=== PATIENT | male | born 1945 | race Caucasian/White ===

== ENCOUNTER → 2016-06-07 | Outpatient (REF) | payer OTHER | LOC: M LAB REF 12:11 | PROVIDERS: ATTEND Internal Medicine | DX: M10.9 Gout, unspecified (principal) ==

== ENCOUNTER → 2016-09-02 | Outpatient (CLI) | payer OTHER ==
[~2016-09-02] VITALS: Ht 170.2 cm; Wt 74.8 kg
[~2016-09-02] MED LIST: ASPI1TAB PO; LIPI10TA PO; LOTR10CA2 PO; NS 1,000 ML IV ONE; PROPOFOL 200 MG/20 ML VIAL As Ordered ONE; ZYLO300T4 PO
--- NOTE | 2016-09-02 14:30 | ROOR ---
Patient Name: Jerome Delgado Procedure Date: 09/02/2016 2:04 PM Date of : 1945 Age: 71 Room: [facility] Gender: Male Note Status: Finalized Procedure: Total Colonoscopy + Biopsy Polypectomy Indications: Screening for colorectal malignant neoplasm Providers: Colt Pham MD Referring MD: CHINEDU SANDHU JR, MD Requesting Provider: Medicines: Monitored Anesthesia Care Complications: No immediate complications. Procedure: Pre-Anesthesia Assessment: - The heart rate, respiratory rate, oxygen saturations, blood pressure, adequacy of pulmonary ventilation, and response to care were monitored throughout the procedure. The Colonoscope was introduced through the anus and advanced to the cecum, identified by appendiceal orifice and ileocecal valve. The colonoscopy was performed without difficulty. The patient tolerated the procedure well. The quality of the bowel preparation was excellent. Findings: The perianal and digital rectal examinations were normal. Non-bleeding internal hemorrhoids were found during retroflexion. The hemorrhoids were small and Grade I (internal hemorrhoids that do not prolapse). Multiple small and large-mouthed diverticula were found in the recto-sigmoid colon, sigmoid colon and descending colon. A small polyp was found in the rectum. The polyp was sessile. The polyp was removed with a cold biopsy forceps. Resection and retrieval were complete. The exam was otherwise without abnormality on direct and retroflexion views. Impression: - Non-bleeding internal hemorrhoids. - Diverticulosis in the recto-sigmoid colon, in the sigmoid colon and in the descending colon. - One small polyp in the rectum, removed with a cold biopsy forceps. Resected and retrieved. - The examination was otherwise normal on direct and retroflexion views. - The exam was otherwise normal to the cecum. Recommendation: - Patient has a contact number available for emergencies. The signs and symptoms of potential delayed complications were discussed with the patient. Return to normal activities tomorrow. Written discharge instructions were provided to the patient. - High fiber diet. - Discharge patient to home. - Continue present medications. - Await pathology results. - Telephone GI clinic for pathology results in 1 week. - Check Portal Online for Path Results.([email or web address] - Repeat colonoscopy for surveillance based on pathology results. - The findings and recommendations were discussed with the patient's family. Colt Pham MD Colt Pham MD 09/02/2016 2:30:05 PM This report has been signed electronically. Number of Addenda: 0 Note Initiated On: 09/02/2016 2:04 PM Estimated Blood Loss: Estimated blood loss: none.
[2016-09-02 14:50] VITALS: BP 138/85
== END | disposition home or self-care (01) ==
LOC: M OPP 13:04
PROVIDERS: ATTEND Internal Medicine Gastroenterology
DX: Z12.11 Encounter for screening for malignant neoplasm of colon (principal); K63.5 Polyp of colon; K64.0 First degree hemorrhoids; K57.30 Diverticulosis of large intestine without perforation or abscess without bleeding; I10 Essential (primary) hypertension; E78.5 Hyperlipidemia, unspecified; M10.9 Gout, unspecified; R06.83 Snoring; Z88.0 Allergy status to penicillin; Z79.82 Long term (current) use of aspirin; Z79.899 Other long term (current) drug therapy

== ENCOUNTER → 2016-12-28 | Outpatient (REF) | payer OTHER ==
[~2016-12-28] MED LIST changes: -NS 1,000 ML IV ONE; -PROPOFOL 200 MG/20 ML VIAL As Ordered ONE
== END ==
LOC: M LAB REF 09:04
PROVIDERS: ATTEND Physician Assistant
DX: N39.0 Urinary tract infection, site not specified (principal)

== ENCOUNTER → 2017-09-23 | Outpatient (REF) | payer OTHER ==
[2017-09-23 13:55] LABS: URIC ACID 4.1 MG/DL (3.5-7.2)
== END ==
LOC: M LAB REF 13:28
DX: M10.9 Gout, unspecified (principal)
CPT/HCPCS: 84550

== ENCOUNTER → 2018-07-21 | Outpatient (REF) | payer MEDICARE ==
[~2018-07-21] MED LIST changes: -ASPI1TAB PO; +ASPI81TA26 PO; -ZYLO300T4 PO; +ZYLO300T6 PO
== END ==
LOC: M LAB REF 12:15
PROVIDERS: ATTEND Internal Medicine
DX: E79.0 Hyperuricemia without signs of inflammatory arthritis and tophaceous disease (principal)

== ENCOUNTER → 2018-12-14 | Outpatient (CLI) | payer MEDICARE ==
--- NOTE | 2018-12-14 12:01 | REP ---
Clinical: Cough and shortness of breath. Technique: PA and lateral. Comparison: 01/25/2016. Findings: Mediastinum and cardiac silhouette are within normal limits and stable. Lung swain demonstrate chronic-appearing interstitial changes. No consolidation, effusion, or pneumothorax. Skeletal structures intact. Impression: Chronic-appearing changes. No acute cardiopulmonary process identified. Electronically Signed by Fran Myrick MD 12/14/2018 11:52 A
== END ==
LOC: M ADAMS 11:20
PROVIDERS: ATTEND Physician Assistant
DX: R05 Cough (principal); R06.02 Shortness of breath

== ENCOUNTER → 2019-01-26 | Outpatient (REF) | payer MEDICARE | LOC: M LAB REF 12:47 | PROVIDERS: ATTEND Internal Medicine | DX: E79.0 Hyperuricemia without signs of inflammatory arthritis and tophaceous disease (principal) ==

== ENCOUNTER → 2019-07-14 | Outpatient (CLI) | payer MEDICARE ==
--- NOTE | 2019-07-14 16:20 | REP ---
CT CHEST WITHOUT CONTRAST: CT chest performed without IV contrast. Sagittal and coronal reconstruction images are performed. There are two small calcified granulomas medially in the right upper lobe. No suspicious nodular opacity is seen bilaterally. There is no acute infiltrate. There is minor diffuse interstitial fibrotic scarring. There is no evidence of mediastinal or axillary adenopathy. Thoracic aorta demonstrates mild diffuse atherosclerotic calcification with no aneurysm. The heart is not enlarged. There is no pleural or pericardial effusion. There are degenerative changes of the spine. IMPRESSION: Two small calcified granulomas in the right upper lobe. Scattered interstitial fibrotic scarring bilaterally. No suspicious pulmonary nodule or lymphadenopathy identified. Electronically Signed by Maxime Soriano MD 07/14/2019 05:12 P
== END ==
LOC: M RAD 15:27
PROVIDERS: ATTEND Physician Assistant
DX: R91.8 Other nonspecific abnormal finding of lung field (principal)

== ENCOUNTER → 2019-07-29 | Outpatient (CLI) | payer MEDICARE ==
[~2019-07-29] MED LIST changes: +METHACHOLINE KIT (J7674) INH ONE
--- NOTE | 2019-07-29 13:16 | PFTRPT ---
Visit Date: 07/29/2019 Referring Doctor: KENY Young Marcus, M Height: 67.00 Inches Weight: 160.00 Lbs BSA: 1.84 Diagnosis: R05 Study of excellent technical quality. Under protocol, methacholine was administered. Even after a maximal dose of 25 mg (188.875 CDUs), no provocation dose was ever achieved. IMPRESSION: Negative methacholine challenge study. MTDD
== END ==
LOC: M CARPUL 12:19
PROVIDERS: ATTEND Physician Assistant
DX: R05 Cough (principal)
CPT/HCPCS: 94070; 95070; J7674

== ENCOUNTER → 2019-08-13 | Outpatient (REF) | payer MEDICARE ==
[~2019-08-13] MED LIST changes: -METHACHOLINE KIT (J7674) INH ONE
== END ==
LOC: M LAB REF 16:39
PROVIDERS: ATTEND Internal Medicine
DX: E79.0 Hyperuricemia without signs of inflammatory arthritis and tophaceous disease (principal)

== ENCOUNTER → 2020-07-24 | Outpatient (REF) | payer MEDICARE ==
[2020-07-24 18:34] LABS: FOLATE 15.8 NG/ML
== END ==
LOC: M LAB REF 16:42
PROVIDERS: ATTEND Internal Medicine
DX: R41.3 Other amnesia (principal)

== ENCOUNTER → 2020-08-04 | Outpatient (CLI) | payer MEDICARE ==
--- NOTE | 2020-08-04 13:17 | REPVR ---
PROCEDURE INFORMATION: Exam: MR Head Without and With Contrast Exam date and time: 08/04/2020 12:48 PM Age: 75 years old Clinical indication: Walking, difficulty; Patient HX: Change in gait and personality TECHNIQUE: Imaging protocol: MR of the head without and with intravenous contrast. Contrast material: PROHANCE; Contrast volume: 13 ml; Contrast route: INTRAVENOUS (IV); COMPARISON: No relevant prior studies available. FINDINGS: Brain: There is no acute intracranial hemorrhage, cerebral edema, or midline shift. No restricted diffusion is present to suggest acute infarction. Multiple small foci of increased T2 and FLAIR signal within the periventricular and subcortical white matter are present. This is nonspecific but most likely represents mild chronic microangiopathic ischemic changes. Less likely this could represent the sequela of migraine headaches, demyelinating disease, prior trauma, or Lyme disease. No enhancing lesions were identified after the administration of contrast. Cerebral ventricles: No hydrocephalus. Bones/joints: Unremarkable. Paranasal sinuses: Normal as visualized. No acute sinusitis. Mastoid air cells: Normal as visualized. No mastoid effusion. Orbital cavity: Unremarkable. Soft tissues: Unremarkable. IMPRESSION: No acute intracranial abnormality. Electronically signed by: Oz Hollingsworth On 08/04/2020 13:17:21 PM
== END ==
LOC: M PLARAD 11:59
PROVIDERS: ATTEND Internal Medicine
DX: R26.89 Other abnormalities of gait and mobility (principal)

== ENCOUNTER → 2021-07-30 | Outpatient (REF) | payer MEDICARE | LOC: M LAB REF 16:15 | PROVIDERS: ATTEND Internal Medicine | DX: E79.0 Hyperuricemia without signs of inflammatory arthritis and tophaceous disease (principal) ==

== ENCOUNTER → 2022-07-18 | Outpatient (REF) | payer MEDICARE | LOC: M LAB REF 16:35 | PROVIDERS: ATTEND Internal Medicine | DX: E79.0 Hyperuricemia without signs of inflammatory arthritis and tophaceous disease (principal) ==

== ENCOUNTER → 2022-10-29 | Outpatient (REF) | payer MEDICARE | LOC: M LAB REF 16:32 | PROVIDERS: ATTEND Internal Medicine | DX: E79.0 Hyperuricemia without signs of inflammatory arthritis and tophaceous disease (principal) ==

== ENCOUNTER → 2023-06-27 | Outpatient (REF) | payer MEDICARE | LOC: M LAB REF 12:21 | PROVIDERS: ATTEND Internal Medicine | DX: E79.0 Hyperuricemia without signs of inflammatory arthritis and tophaceous disease (principal) ==